=== PATIENT | female | born 1945 | race Caucasian/White ===

== ENCOUNTER 2018-12-29 19:21 | Emergency (ER) | payer MEDICARE, SELFPAY ==
[2018-12-29 19:21] VITALS: BP 161/80; PULSE 61; RESP 16; TEMP 37; O2SAT 96; BMI 29.6
--- NOTE | 2018-12-29 20:05 | ED.DCSUM_ITS ---
- ER Visit Summary Date of Service: 12/29/18 Chief Complaint: Neck pain History of Present Illness: The patient is a 73 F who awoke last week with neck pain and stiffness. She states she been weed whacking the day prior. She is tried ibuprofen and Tylenol without relief. She does take a half a tab of Fle xeril at bedtime to help with leg spasms. She was initially at urgent care and sent to the emergency room for further evaluation. Patient did state that she removed a tick from her abdomen last week. It was only present a few hours at most. She has not had any rash or soreness to the area. She states her back has been itching but she does not know that she had a tick on her back at all. She has not had a rash there. Physical Examination: Blood pressure is 161/80, otherwise vitals normal. Patient sitting upright in bed no acute distress. When turning to speak to me she turns from her shoulders. Head and neck examination was no midline cervical tenderness. She does have paraspinal tenderness with spasm. Heart is regular rate and rhythm. Lung sounds clear. Abdomen is soft and nontender. Skin examination reveals a small area of ecchymosis on her back. There is no erythema or evidence of tick bite. Neuro exam is normal. Test Results: [] Emergency Department Course and Treatment: Patient will be written a short course of [place] to help with pain. She will continue ibuprofen and her Flexeril. Treatment Plan: [] Disposition: Discharge Impression: Neck spasm This note was generated with [employer] dictation software. It may contain incorrect words, spelling, and punctuation that were not noted in review of the chart prior to signing ED Disposition - Plan for ED Patient: Disposition: Home or Assisted Living Instructions: NECK SPASM, No Trauma Prescriptions: Hydrocodone Bitart/Apap 5-325 [[place] 5MG-325MG] 1 tablet PO Q6H PRN PRN 3 Days #10 tablet PRN Reason: Pain Referrals: Sharon Singh MD [Primary Care Provider] - 5-7 Days
[2018-12-29] MEDS: HYDROcodone Bitartrate/Apap 5/325 Tablet PO (20:35)
[2018-12-29 20:38] VITALS: BP 153/76; PULSE 74; RESP 16; O2SAT 97
== END 2018-12-29 20:39 | disposition home or self-care (01) ==
LOC: ED 20:22
PROVIDERS: Emergency Provider Emergency Medicine; Family Provider Internal Medicine; PCP Internal Medicine
DX: M62.838 Other muscle spasm (principal); I25.10 Atherosclerotic heart disease of native coronary artery without angina pectoris; I25.2 Old myocardial infarction; E11.9 Type 2 diabetes mellitus without complications; F41.9 Anxiety disorder, unspecified; Z79.82 Long term (current) use of aspirin; Z79.84 Long term (current) use of oral hypoglycemic drugs; Z79.899 Other long term (current) drug therapy; Z72.0 Tobacco use
CPT/HCPCS: 99283